=== PATIENT | female | born 1945 | race Hispanic/Latino ===

== ENCOUNTER → 2018-05-27 | Outpatient (CLI) | payer OTHER, SELFPAY ==
[~2018-05-27] MED LIST: CLON0.5T12 PO; IBUP-2354 PO; INSU100V12 SQ; METF-444 PO; METO-409 PO; MULT-729 PO; OMEP20CA10 PO; SIMV40TA59 PO
== END | disposition home or self-care (01) ==
LOC: OIH 15:27
PROVIDERS: ATTEND Internal Medicine Cardiovascular Disease
DX: Z13.6 Encounter for screening for cardiovascular disorders (principal)
CPT/HCPCS: 75571

== ENCOUNTER → 2018-07-17 | Outpatient (CLI) | payer MEDICARE | END | disposition home or self-care (01) | LOC: SHCH 09:00 | PROVIDERS: ATTEND Internal Medicine Cardiovascular Disease | DX: I51.7 Cardiomegaly (principal); I35.1 Nonrheumatic aortic (valve) insufficiency | CPT/HCPCS: 93306 ==